=== PATIENT | female | born 1965 | race Caucasian/White ===

== ENCOUNTER 2022-03-08 13:16 | Outpatient (CLI) | payer BC, SELFPAY ==
--- NOTE | ~2022-03-08 | US_ITS ---
US pelvic complete w TV DATE: 03/08/2022 15:28 INDICATION: Pelvic and perineal pain TECHNIQUE: Real-time imaging via transabdominal and transvaginal approaches COMPARISON: None FINDINGS: The uterus measures approximately 5.6 cm vertical dimension, 2.6 cm AP dimension. Central e ndometrial echo measures up to approximately 6.8 L AP dimension, with heterogeneous echotexture consi stent vascularity of the endometrium. Endometrial malignancy is not excluded. Consider gynecological consultation and possible further evaluation such as D&C. Right ovary measures 2.8 x 1.6 x 1.1 cm. The left ovary is not definitively visualized, likely due to the large cystic mass. There is a very large up to 17.6 cm vertical and 9.4 cm AP and 15.4 cm transverse cystic lesion pelvi s and lower abdomen. Consider CT abdomen pelvis for further evaluation. IMPRESSION: Huge pelvic and abdominal cystic mass measuring up to 17.[address] abdomen pelvi s examination is recommended Heterogeneous endometrium with some vascularity; endometrial malignancy is not excluded. Gynecologic consultation is recommended. Reviewed, dictated and finalized at [facility] Reviewed, dictated and finalized at [facility]. 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 abdomen pelvis examination is recommended Heterogeneous endometrium with some vascularity; endometrial malignancy is not excluded. Gynecologic consultation is recommended.
[2022-03-08 15:48] LABS: Appearance Urine Clear (Clear); Bilirubin Urine Negative (Negative); Blood Urine Trace-intact (Negative); Color Urine Yellow (Yellow); Glucose Urine UA Negative (Negative); Ketones Urine Negative (Negative); Leukocyte Esterase Ur Negative LEU/UL (NEGATIVE); Nitrate Urine Negative (Negative); Protein Urine Negative (Negative); Specific Grav Ur <= 1.005 (1.001-1.035); Urobilinogen Urine 0.2 mg/dL (<2.0)
[2022-03-08 15:54] LABS: Squamous Epithelial Cell Urine Rare /hpf (Few); WBC Urine 0-3 /hpf (0-3)
[2022-03-08 16:32] LABS: Add Urine Microscopic? YES
== END 2022-03-08 13:17 | disposition home or self-care (01) ==
PROVIDERS: Visit Provider Student in an Organized Health Care Education/Training Program
DX: R30.0 Dysuria (principal); N83.209 Unspecified ovarian cyst, unspecified side; R10.2 Pelvic and perineal pain
CPT/HCPCS: 76830; 76856; 81001; 87086

== ENCOUNTER 2022-03-20 10:54 | Outpatient (CLI) | payer BC, SELFPAY ==
--- NOTE | ~2022-03-20 | CT_ITS ---
EXAMINATION: CT abdomen pelvis wo con DATE: 03/20/2022 12:58 INDICATION: Ovarian cyst TECHNIQUE: Computed tomography (CT) of the abdomen and pelvis was performed without intravenous contr ast. (Patient reportedly refused IV contrast.) Automated exposure control and iterative reconstructio n technique were employed. Exam dose: 251.64 mGy-cm total exam DLP. COMPARISON: 03/08/2022 pelvic ultrasound examination FINDINGS: The lung bases are clear. Heart size is within normal range. No pericardial or pleural effu claudio. The liver, spleen, pancreas, adrenal glands and kidneys appear unremarkable on this limited noncontra st examination. No bile duct or pancreatic duct dilatation. No urinary tract calculus or hydrouretero nephrosis is detected. The urinary bladder is unremarkable. Normal caliber of the abdominal aorta. No intraperitoneal or retroperitoneal or pelvic lymphadenopath y or ascites is noted. There is a huge pelvic cystic lesion extending above the level of the umbilicus, measuring up to 16.4 cm height, 11 cm anteroposterior and 16 cm transverse dimension. There is a prominent amount of fecal material throughout the rectum and colon. No bowel obstruction. No intraperitoneal free air. Included skeletal structures are unremarkable. IMPRESSION: Very large pelvic cystic mass extending up to the level of the umbilicus. Gynecologic diaz rgical consultation is recommended Reviewed, dictated and finalized at [facility] Reviewed, dictated and finalized at [facility]. [employer] SOFTWARE DEVELOPMENT IMPRESSION: Very large pelvic cystic mass extending up to the level of the umb ilicus. Gynecologic surgical consultation is recommended
[2022-03-20 12:41] LABS: Carcinoembryonic Antigen 2.1 ng/mL (0.0-3.0)
[2022-03-24 04:53] LABS: CA 19-9 35 U/mL (<34)
== END 2022-03-20 10:55 | disposition home or self-care (01) ==
PROVIDERS: Visit Provider Student in an Organized Health Care Education/Training Program
DX: N83.209 Unspecified ovarian cyst, unspecified side (principal)
CPT/HCPCS: 36415; 74176; 82378; 86301

== ENCOUNTER 2023-03-13 13:23 | Emergency (ER) | payer BC, SELFPAY ==
--- NOTE | 2023-03-13 13:29 | PC.NURSE ---
pts up to desk stating that his has been poisoned and that i better get someone out here to see her. informed him that we will call her into triage after we finish with the other pt.
[2023-03-13 13:37] VITALS: BP 105/78; PULSE 72; RESP 18; TEMP 36.7; O2SAT 100
--- NOTE | 2023-03-13 15:48 | ED.GENADULT ---
HPI - General Adult General Chief complaint: Skin/Abscess/Foreign Body Stated complaint: insect bite Time Seen by Provider: 03/13/23 14:24 Source: patient Mode of arrival: ambulatory Limitations: no limitations History of Present Illness HPI narrative: This is a 57-year-old female who presents to the ED with chief complaint of possible insect bite to the left side of her abdomen. Patient reports that this probably occurred around 5-6 a.m. this morning. Reports she felt something crawl in her shirt at night but does not recall any Specific bite. reports the area is slightly itchy and somewhat painful. Reports the area is erythematous and there is some streaking up the side. Denies fevers, chills, nausea, vomiting. Denies any further complaints. Related Data Allergies Allergy/AdvReac Type Severity Reaction Status Date / Time No Known Allergies Allergy Verified 03/11/23 14:08 Review of Systems Review of Systems: All systems as dictated in [facility] Past Medical History Medical History (Updated 03/13/23 @ 15:52 by Parrish Hamilton PA-C) Ovarian cyst Surgical History Surgical History (Updated 03/11/23 @ 14:09 by Dimple Bowman CMA) H/O ovarian cystectomy Hx of appendectomy Social History Social History (Updated 03/11/23 @ 14:12 by Dimple Bowman CMA) Smoking status: Never smoker Alcohol intake: never Substance use: never Lack of Transportation: No Lack of Food: Never True Current Housing: I Have Housing Concerned About Future Housing: No Difficulty Paying Gas/Electric Bills: No Difficulty Paying for Meds: No Currently Unemployed: No Education: Bachelor's Degree Difficulty w/ Childcare or Family Care: No Living arrangements: with family Occupation/Education: occupation 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 HEAD: Normocephalic, atraumatic. EYES: PERRLA and EOMI. ENT: Nares clear, no rhinorrhea or epistaxis. Mucous membranes moist. Oropharynx without tonsillar hypertrophy exudate or other lesions. NECK: Supple. No adenopathy or masses. CHEST: No respiratory distress. Clear to auscultation. No wheezes rales or rhonchi HEART: Regular rate and rhythm. No murmur heard. Normal peripheral pulses. ABDOMEN: Soft, nontender, nondistended, normal active bowel sounds. MSK: Normal range of motion. No edema. SKIN: There is an area of macular erythema to the he left abdomen with some streaking up the left side of the torso. The area is very well-defined with clear margins. It is not raised. minimal tenderness. Central punctate lesion. NEURO: Alert and oriented x3. No focal deficits. PSYCH: Normal mood and affect. Course Vital Signs Vital signs: Vital Signs Temperature 98.1 F 03/13/23 13:37 Pulse Rate 72 03/13/23 13:37 Respiratory Rate 18 03/13/23 13:37 Blood Pressure 105/78 03/13/23 13:37 Pulse Oximetry 100 03/13/23 13:37 Oxygen Delivery Room Air 03/13/23 13:37 Temperature 98.1 F 03/13/23 13:37 Pulse Rate 72 03/13/23 13:37 Respiratory Rate 18 03/13/23 13:37 Blood Pressure 105/78 03/13/23 13:37 Pulse Oximetry 100 03/13/23 13:37 Oxygen Delivery Room Air 03/13/23 13:37 Medical Decision Making MDM Narrative Medical decision making narrative: This is a 57-year-old female who presents to the ED with chief complaint of left abdominal possible insect bite. Vitals are normal. Exam shows macular rash to left side of the abdomen with upper streaking. The margins are very well-defined and it appears to be more of an allergic reaction, however will cover for possible cellulitis due to this bug bite. Instructions for taking antihistamines given. Prescription for Keflex given. Pt wi
== END 2023-03-13 16:14 | disposition home or self-care (01) ==
PROVIDERS: Emergency Provider Physician Assistant; PCP Family Medicine
DX: S30.861A Insect bite (nonvenomous) of abdominal wall, initial encounter (principal); W57.XXXA Bitten or stung by nonvenomous insect and other nonvenomous arthropods, initial encounter
CPT/HCPCS: 99283

== ENCOUNTER 2023-09-26 03:40 | Emergency (ER) | payer BC, SELFPAY ==
[2023-09-26] VITALS (17 sets, daily range): BP systolic 105–138; BP diastolic 71–82; PULSE 54–76; RESP 12–20; TEMP 36.3; O2SAT 95–100
--- NOTE | 2023-09-26 03:40 | ECG_ITS ---
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 Measurements Intervals Pound Rate: 69 P: 76 [place]: 156 QRS: 72 QRSD: 100 T: 54 QT: 401 QTc: 431 Interpretive Statements SINUS RHYTHM POSSIBLE LEFT ATRIAL ENLARGEMENT BORDERLINE R WAVE PROGRESSION, ANTERIOR LEADS BASELINE ARTIFACT- I, II, III, AVR, AVL, AVF, V1-V6 BORDERLINE ECG No previous ECG available for comparison Electronically Signed On 09-26-2023 09:31:32 CDT by Duglas John D.O.
--- NOTE | 2023-09-26 04:13 | ED.CHESTPAIN ---
HPI - Chest Pain General Chief Complaint: Chest Pain Stated Complaint: chest pain Time Seen by Provider: 09/26/23 03:49 Source: patient Mode of arrival: ambulatory Limitations: no limitations History of Present Illness HPI narrative: this is a 58-year-old female with significant past medical history presents with chest discomfort described as a pinching and more of twitching of the chest wall with no chest tightness no shortness of breath no radiation of her pain no diaphoresis no nausea vomiting. Patient says she was quite active in her form today and feels that this could have caused her discomfort. complaint: chest discomfort Onset (ago): hour(s) Timing of current episode: episodic Prior episodes: No Onset: during rest Pain location: other Pain radiation: none Severity: mild Quality: other ( spasm chest wall) Related Data Allergies Allergy/AdvReac Type Severity Reaction Status Date / Time No Known Allergies Allergy Verified 09/26/23 03:52 Review of Systems Review of Systems: All systems reviewed & are unremarkable except as noted in HPI and below PMFSH Past Medical History Medical History Ovarian cyst Surgical History Surgical History H/O ovarian cystectomy Hx of appendectomy Social History Social History Smoking status: Never smoker Alcohol intake: never Substance use: never Lack of Transportation: No Lack of Food: Never True Current Housing: I Have Housing Concerned About Future Housing: No Difficulty Paying Gas/Electric Bills: No Difficulty Paying for Meds: No Currently Unemployed: No Education: Bachelor's Degree Difficulty w/ Childcare or Family Care: No Living arrangements: with family Occupation/Education: occupation 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 Gender identity (if verbalized by the patient): Female Sexual Orientation (if Verbalized by the Patient): Straight or Heterosexual Exam Const: General: cooperative, healthy appearing, comfortable, no acute distress and well developed HENMT: Head: normal to inspection Neck: Neck: normal visual inspection, full ROM and no lymphadenopathy Chest: Chest palpation & inspection: normal inspection of the chest and normal palpation of entire chest wall Resp: Effort & Inspection: normal respiratory effort Auscultation: clear to auscultation bilaterally Cardio: Jugular venous distension: no JVD Palpation: normal PMI Rate: regular rate Rhythm: regular rhythm Heart sounds: S1 normal heart sound present and S2 normal heart sound present Back/Spine/Pelvis: Cervical Spine: normal cervical lordosis and cervical ROM normal Thoracic/Lumbar Spine: thoracic and lumbar spine normal to inspection and thoraco-lumbar ROM normal Skin: General skin exam: normal color and no rashes or lesions noted Neuro: General: oriented to person, oriented to place and oriented to time Course Course Emergency Course: EKG performed shows normal sinus rhythm with no ST or T changes, labs performed and reviewed with patient. Otherwise patient is comfortable and currently no discomfort in her chest. Vital Signs Vital signs: Vital Signs Oxygen Delivery Room Air 09/26/23 03:40 Temperature 36.3 C L 09/26/23 03:44 Pulse Rate 65 09/26/23 03:50 Respiratory Rate 15 09/26/23 03:44 Blood Pressure 138/79 09/26/23 03:44 Pulse Oximetry 98 09/26/23 03:44 Oxygen Delivery Room Air 09/26/23 03:44 MDM - Chest Pain Lab Data 09/26/23 04:07 Labs: Lab Results 09/26/23 Range/Units 04:07 Sodium Pending Potassium Pending Chloride Pending Carbon Dioxide Pending Anion Gap Pending BUN Pending Creatinine Pending Estim Creat Clear Calc Pending Estimated GFR Pending Glucose Pending
[2023-09-26 04:32] LABS: Alanine Aminotransferase 19 U/L (14-59); Albumin Level 3.5 g/dL (3.4-5.0); Alkaline Phosphatase 40 U/L (46-116); Anion Gap 12 mmol/L (4-12); Aspartate Amino Transferase 22 U/L (15-37); Bilirubin,Total 0.3 mg/dL (0.00-1.00); Blood Urea Nitrogen 23 mg/dL (7-18); Calcium 8.6 mg/dL (8.5-10.1); Carbon Dioxide 26 mmol/L (21-32); Chloride 105 mmol/L (98-108); Estimated CRCL calculation 64 ml/min; Estimated Glomerular Filt Rate > 60; Glucose 102 mg/dL (70-99); Osmolality Calculated 299 mOsm/kg (285-295); Potassium 3.4 mmol/L (3.5-5.1); Sodium 143 mmol/L (136-145); Total Protein 6.6 g/dL (6.4-8.2)
[2023-09-26 04:33] LABS: Troponin I < 4.0 ng/L (0.00-60.4)
[2023-09-26] MEDS: POTASSIUM BICARBONATE 25 MEQ TABEF 50 MEQ PO (05:33)
== END 2023-09-26 05:43 | disposition home or self-care (01) ==
PROVIDERS: Emergency Provider Emergency Medicine; PCP Family Medicine
DX: R07.89 Other chest pain (principal); E87.6 Hypokalemia
CPT/HCPCS: 36415; 80053; 83735; 84484; 93005; 99284; A9270